=== PATIENT | male | born 1995 | race Caucasian/White ===

== ENCOUNTER 2021-04-08 00:39 | Emergency (ER) | payer MEDICAID, SELFPAY ==
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
[2021-04-08 00:54] VITALS: BP 122/75; PULSE 84; RESP 20; O2SAT 99; BMI 25.7
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
--- NOTE | 2021-04-08 01:25 | PC.NURSE ---
pt off to CT
--- NOTE | 2021-04-08 01:42 | PC.NURSE ---
pt back from CT
[2021-04-08] MEDS: ondansetron HCL 4 MG/2 ML VIAL IVPUSH (02:16)
[2021-04-08 02:18] VITALS: RESP 16
[2021-04-08] MEDS: Morphine Sulfate 4 MG/ML CARTRIDGE IVPUSH ×2 (02:18→03:39)
[2021-04-08 03:39] VITALS: RESP 16
[2021-04-08] MEDS: Lidocaine HCl 1%/Epi 1:100,000 20 ML VIAL INFILTRATI (03:43)
[2021-04-08 03:44] VITALS: RESP 16
--- NOTE | 2021-04-08 03:45 | PC.NURSE ---
at bedside for suture procedure
--- NOTE | 2021-04-08 04:15 | PC.NURSE ---
pt tolerated sutures well MD placed 14 stitches total. 4 internal stitches and 6 external stitches to puncture wound on R corner of mouth. 4 external stitches to wound on underside of chin.
[2021-04-08] MEDS: Diphth,Pertus(ACell),Tet Adult 0.5 ML SYRINGE IM (04:20)
--- NOTE | 2021-04-08 05:13 | PC.NURSE ---
Bacitractin applied to abrasions on left knee, non-adhesive dressing applied over abrasions and then wrapped with gauze wrap by this nurse.
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
[2021-04-08 05:42] VITALS: PULSE 75; RESP 16; O2SAT 97
== END 2021-04-08 05:44 | disposition home or self-care (01) ==
PROVIDERS: Emergency Provider Emergency Medicine Emergency Medical Services
DX: S01.81XA Laceration without foreign body of other part of head, initial encounter (principal); S80.812A Abrasion, left lower leg, initial encounter; G44.309 Post-traumatic headache, unspecified, not intractable; M79.605 Pain in left leg; M54.2 Cervicalgia; F12.90 Cannabis use, unspecified, uncomplicated; V27.4XXA Motorcycle driver injured in collision with fixed or stationary object in traffic accident, initial encounter; Y93.9 Activity, unspecified; Y92.410 Unspecified street and highway as the place of occurrence of the external cause; Y99.9 Unspecified external cause status
CPT/HCPCS: 12014; 70450; 70486; 72125; 90471; 90715; 96374; 96375; 96376; 99284; J2270; J2405

== ENCOUNTER 2021-04-23 11:38 | Emergency (ER) | payer MEDICAID, SELFPAY ==
[2021-04-23 11:44] VITALS: BP 127/68; PULSE 98; RESP 18; TEMP 36.3; O2SAT 96; BMI 25.7
--- NOTE | 2021-04-23 12:10 | ED.GENADULT ---
HPI - General Adult General Chief complaint: Recheck/Abnormal Lab/Rx Stated complaint: suture removal Time Seen by Provider: 04/23/21 12:08 History of Present Illness HPI narrative: Patient presents to ED for suture removal. Patient states he had sutures placed on 08 of april. Patient denies any complaint. Patient denies any fever or chills. Related Data Allergies Allergy/AdvReac Type Severity Reaction Status Date / Time No Known Allergies Allergy Verified 04/08/21 00:53 [No Known Allergies*] Review of Systems Review of Systems: Yes all other systems are reviewed and are negative Constitutional: Constitutional: Reports as per HPI and Reports no additional constitutional complaints Eyes: Eyes: Reports as per HPI and Reports no additional eye complaints ENT: Reports system reviewed and no additional complaints, except as documented and Reports as per HPI Cardiovascular: Cardiovascular: Reports as per HPI and Reports no additional cardiovascular complaints Respiratory: Respiratory: Reports as per HPI and Reports no additional respiratory complaints Gastrointestinal: Gastrointestinal: Reports as per HPI and Reports no additional gastrointestinal complaints Genitourinary: Genitourinary: Reports no additional male genitourinary complaints and Reports as per HPI Musculoskeletal: Musculoskeletal: Reports no additional musculoskeletal complaints and Reports as per HPI Neurologic: Reports system reviewed and no additional complaints, except as documented and Reports as per HPI Psychiatric: Psychiatric: Reports no additional psychiatric complaints and Reports as per HPI [facility] Past Medical History Medical History (Updated 04/23/21 @ 12:17 by RAYSHAWN Lyman) No known health problems Social History Social History Advance Directives: No Advance Directives Information Provided: No Physical Exam Vital Signs: Vital Signs: Last Vital Signs Temp 97.3 F 04/23/21 11:44 Pulse 98 04/23/21 11:44 Resp 18 04/23/21 11:44 BP 127/68 04/23/21 11:44 Pulse Ox 96 04/23/21 11:44 Body Mass Index 25.7 Const: General: cooperative, healthy appearing, comfortable, no acute distress, well developed, alert, awake and Physically active Orientation/consciousness: patient oriented x3 HENMT: Head: Yes normal to inspection, Yes No palpable skull fracture present, Yes normocephalic, Yes atraumatic and No abrasion Head images: 1. Wound with sutures. Negative for any erythema, pus discharge, foul odor, or tenderness 2. Wound with sutures. Negative for any erythema, pus discharge, foul odor, or tenderness Eyes: General: appearance normal, both eyes and all related structures Neck: Neck: Yes normal visual inspection, Yes full ROM, Yes no lymphadenopathy, Yes no meningeal signs, Yes trachea midline, Yes supple and No tender Chest: Chest palpation & inspection: normal inspection of the chest and normal palpation of entire chest wall Resp: Effort & Inspection: normal respiratory effort and able to speak in complete sentences Auscultation: clear to auscultation bilaterally, no crackles, no rales, no rhonchi and no wheezes Cardio: Jugular venous distension: no JVD Heart sounds: S1 normal heart sound present and S2 normal heart sound present GI: Inspection: Yes normal to inspection and No abdominal wall ecchymosis Palpation (GI): Soft to palpation, not firm, nontender, no guarding and not rigid : General: No CVA tenderness and Yes no CVA tenderness Back/Spine/Pelvis: Back: no CVA tenderness, No CVA tenderness and No back tenderness Skin: General skin exam: no rashes or lesions noted and elasticity normal Neuro: General: patient oriented x3, gait normal, no meningeal signs and CN's II-XI intact bilaterally Cranial nerves: Yes CN's II-XII intact bilaterally Extrem: General: Yes normal to inspection and Yes full ROM Psych: Appearance: grossly normal, well kempt and not disheveled Course Course Course Narrative: Sutures to be removed. Reevaluation(s) Reevaluation #1: Area clean with normal saline. Sutures removed from wound on right side of lower lip and chin. No signs of infection. Patient is safe for discharge Time: 12:16 Medical Decision Making [facility] Narrative Medical decision making narrative: Suture removal Discharge Plan Discharge Clinical Impression: Visit for suture removal Patient Disposition: Home, Self-Care Instructions: Stitches Removal (ED) Additional Instructions: No signs of infection. Return to the ED. post discharge, foul odor, fever, chills, erythema, or any other concerning symptoms. Please follow-up with PCP. Interventions: ED Discharge Assessment Last Done: 04/23/21 12:30 Discharge Date/Time: 04/23/21 12:36 Print Language: [place]
--- NOTE | 2021-04-23 12:29 | PC.NURSE ---
PT EVALUATED BY DR AVERY. PT AWARE AND AGREEABLE TO ED CARE PLAN. PT AWAKE, ALERT AND ORIENTED X 3. SKIN WARM AND DRY. RESP UNLABORED. DENIES N/V. NO ACUTE DISTRESS NOTED. NEUROS INTACT. SCHAFER FREELY. SPEAKING IN FULL CLEAR SENTENCES. NO ACUTE DISTRESS.
== END 2021-04-23 12:36 | disposition home or self-care (01) ==
PROVIDERS: Emergency Provider Emergency Medicine
DX: Z48.02 Encounter for removal of sutures (principal)
CPT/HCPCS: 99283

== ENCOUNTER 2021-08-31 13:01 | Emergency (ER) | payer MEDICAID, SELFPAY ==
--- NOTE | ~2021-08-31 | CT_ITS ---
EXAMINATION: CT ABDOMEN AND PELVIS WITHOUT CONTRAST CLINICAL INFORMATION: Rule out ulcer/perforation. Abdominal pain. COMPARISON: March 03, 2019 TECHNIQUE: Multidetector volumetric imaging was performed from the superior aspect of the liver through the pubic symphysis. Sagittal and coronal reformatted images were obtained on the technologist's workstation. This CT examination was performed using dose optimization techniques as appropriate, variously including the following: *Automated exposure control *Adjustment of mA and/or kV according to patient size (this includes techniques or standardized protocols for targeted exams where dose is matched to indication/reason for exam; i.e. extremities or head) *Use of iterative reconstruction technique DLP: 459 mGy-cm FINDINGS: There is motion artifact present. LUNG BASES: The visualized lung bases are unremarkable. No pleural or pericardial effusion. LIVER, GALLBLADDER, AND BILIARY TREE: The liver is normal in size, shape, and attenuation. No focal hepatic lesion or biliary ductal dilatation is present. The gallbladder is unremarkable with no evidence of radiopaque gallstones, gallbladder wall thickening, or obvious pericholecystic inflammatory changes. PANCREAS: Unremarkable. SPLEEN: Unremarkable. ADRENAL GLANDS: Unremarkable. KIDNEYS AND URETERS: The kidneys are normal in size, shape, and attenuation. No hydronephrosis, hydroureter, or calculi seen. No perinephric stranding. BLADDER: Unremarkable. GASTROINTESTINAL TRACT: No dilated loops of large or small bowel are evident. No free air or free fluid is seen. No evidence of acute diverticulitis. No pericolonic inflammatory change to suggest colitis. No evidence of acute appendicitis. ABDOMINAL WALL: No significant hernia is appreciated. LYMPH NODES: No lymphadenopathy appreciated. VASCULAR: Unremarkable. PELVIC VISCERA: Unremarkable. OSSEOUS STRUCTURES: No suspicious destructive bony lesions identified. There is partial sacralization of L5 on the left. CT/CT abdomen pelvis wo con IMPRESSION: No evidence of ileus or obstruction. No evidence of acute appendicitis. No evidence of obstructive uropathy. Fleischner guidelines were followed.
--- NOTE | ~2021-08-31 | XR_ITS ---
EXAMINATION: XR CHEST CLINICAL INFORMATION: Rule out free air under the diaphragm COMPARISON: None TECHNIQUE: AP portable view of the chest was obtained. FINDINGS: No significant abnormality is noted involving the heart, lungs, mediastinum, bony thorax or soft tissues. XR/XR chest 1V IMPRESSION: No acute disease. No free air seen under the diaphragms.
--- NOTE | 2021-08-31 13:10 | ECG_ITS ---
Test Reason : abd pain Blood Pressure : / mmHG Vent. Rate : 071 BPM Atrial Rate : 071 BPM P-R Int : 118 ms QRS Dur : 102 ms QT Int : 430 ms P-R-T Axes : 071 085 065 degrees QTc Int : 467 ms Normal sinus rhythm with sinus arrhythmia Normal ECG When compared with ECG of 26-JUN-2019 08:51, No significant change was found Referred By: Aye Coker Electronically Signed By:AMPARO OSORIO MD
[2021-08-31 13:11] VITALS: BP 129/67; BP 138/57; PULSE 80; PULSE 81; RESP 22; TEMP 36.8; O2SAT 100; O2SAT 97; BMI 23.0
--- NOTE | 2021-08-31 13:14 | ED.ABDPAIN ---
HPI - Abdominal Pain General Chief Complaint: Abdominal Pain Stated Complaint: ABD PAIN,VOMITING BLOOD Time Seen by Provider: 08/31/21 13:09 Source: patient and EMS Mode of arrival: EMS Limitations: no limitations History of Present Illness HPI narrative: Patient comes emergency room complaining of 4 days of abdominal pain. Patient states he has severe epigastric pain. Patient coming in crying, states he has history of peptic ulcers, but has not been taking any medication for several years. Related Data Previous Rx's Medication Instructions Recorded metoclopramide HCl 5 mg tablet 5 mg PO DAILY PRN #10 tab 08/31/21 omeprazole 40 mg capsule,delayed 40 mg PO DAILY #20 cap 08/31/21 release Allergies Allergy/AdvReac Type Severity Reaction Status Date / Time No Known Allergies Allergy Verified 04/08/21 00:53 [No Known Allergies*] COUNT INCLUDES [facility] Past Medical History Medical History (Updated 08/31/21 @ 16:09 by Aye Coker MD) Stomach ulcer Social History Social History Advance Directives: No Advance Directives Information Provided: Yes Physical Exam ED Vital Signs: Vital Signs - 24 hr 08/31/21 13:11 08/31/21 14:00 08/31/21 15:43 Temperature 98.2 F 98.1 F 98.5 F Pulse Rate 81 65 75 Respiratory Rate 22 H 17 16 Blood Pressure 138/57 L 101/52 L 107/58 L Pulse Oximetry 97 94 98 BMI result Body Mass Index 23.0 Course Course Course Narrative: Patient feeling better. Patient will p.o. challenge. Anticipating discharge home. Pain and vomiting likely secondary to cyclic vomiting versus peptic ulcer disease. Perforation not suspected MDM - Abdominal Pain Lab Data Result diagrams: 08/31/21 13:45 08/31/21 13:45 Labs: Lab Results 08/31/21 08/31/21 08/31/21 Range/Units 13:45 13:45 13:45 WBC 11.2 H (4.8-10.8) X10*3/uL RBC 4.74 (4.60-5.80) X10*6/uL Hgb 14.4 (14.0-18.0) g/dl Hct 40.3 L (42.0-52.0) % MCV 85.0 (80.0-98.0) fL MCH 30.4 (27.0-33.0) pg MCHC 35.7 (31.0-36.0) g/dl RDW 11.9 (11.0-16.0) % Plt Count 255 (160-400) X10*3/uL MPV 10.1 (9.4-12.4) fL Immature Gran % (Auto) 0.5 H (0.0-0.4) % Neut % (Auto) 82.6 H (45-73) % Lymph % (Auto) 10.8 L (20-40) % [place] % (Auto) 5.9 (2-11) % Eos % (Auto) 0.0 (0-4) % Baso % (Auto) 0.2 (0-2) % Lymph # (Auto) 1.2 (1.2-4.9) X10*3/uL [place] # (Auto) 0.7 (0.1-1.2) X10*3/uL Eos # (Auto) 0.0 (0.0-0.4) X10*3/uL Baso # (Auto) 0.0 (0.0-0.2) X10*3/uL Abs Immat Gran (auto) 0.06 H (0.00-0.03) X10*3/uL Absolute Neuts (auto) 9.3 H (2.0-8.3) x10*3/uL Absolute Nucleated RBC 0.000 (0.0-0.012) X10*3/uL Nucleated RBC % (auto) 0.0 (0.0-0.2) /100WBC Sodium 135 (135-145) mmol/L Potassium 3.4 (3.3-5.1) mmol/L Chloride 99 (96-108) mmol/L Carbon Dioxide 22 (22-29) mmol/L Anion Gap 17 (12-20) BUN 17 H (9-16) mg/dL Creatinine 0.92 (0.5-1.4) mg/dL Estim Creat Clear Calc 131.5 Estimated GFR > 60 Random Glucose 95 (60-115) mg/dL Lactic Acid 1.8 (0.5-2.0) mmol/L Calcium 9.7 (8.4-10.2) mg/dL Total Bilirubin 2.5 H (0.0-1.0) mg/dL Direct Bilirubin 0.9 H (0.0-0.5) mg/dL AST 29 (5-37) U/L ALT 30 (0-40) U/L Alkaline Phosphatase 58 (39-117) U/L Total Protein 7.7 (6.5-8.0) g/dL Albumin 4.8 (3.5-5.0) g/dL Lipase 10 (8-78) U/L Urine Color Urine Appearance Urine pH (5.0-8.0) Ur Specific [place] (1.005-1.025) Urine Protein (NEG-TRACE) MG/DL Urine Glucose (UA) (NEG) MG/DL Urine Ketones (NEG) MG/DL Urine Blood (NEG) Urine Nitrite (NEG) Ur Leukocyte Esterase (NEG) Urine Opiates Screen (Not Detect) Urine Fentanyl Screen (Not Detect) Ur Barbiturates Screen (Not Detect) Ur Phencyclidine Scrn (Not Detect) Ur Amphetamines Screen (Not Detect) U Benzodiazepines Scrn (Not Detect) Urine Cocaine Screen (Not Detect) U Marijuana (THC) Screen (Not Detect) COVID-19 ([facility]) (Negative) COVID-19 Clin Com 08/31/21 08/31/21 08/31/21 Range/Units 13:45 14:39 14:39 WBC (4.8-10.8) X10*3/uL RBC (4.60-5.80) X10*6/uL Hgb (14.0-18.0) g/dl Hct (42.0-52.0) % MCV (80.0-98.0) fL MCH (27.0-33.0) pg MCHC (31.0-36.0) g/dl RDW (11.0-16.0) % Plt Count (160-400) X10*3/uL MPV (9.4-12.4) fL Immature Gran % (Auto) (0.0-0.4) % Neut % (Auto) (45-73) % Lymph % (Auto) (20-40) % [place] % (Auto) (2-11) % Eos % (Auto) (0-4) % Baso % (Auto) (0-2) % Lymph # (Auto) (1.2-4.9) X10*3/uL [place] # (Auto) (0.1-1.2) X10*3/uL Eos # (Auto) (0.0-0.4) X10*3/uL Baso # (Auto) (0.0-0.2) X10*3/uL Abs Immat Gran (auto) (0.00-0.03) X10*3/uL Absolute Neuts (auto) (2.0-8.3) x10*3/uL Absolute Nucleated RBC (0.0-0.012) X10*3/uL Nucleated RBC % (auto) (0.0-0.2) /100WBC Sodium (135-145) mmol/L Potassium (3.3-5.1) mmol/L Chloride (96-108) mmol/L Carbon Dioxide (22-29) mmol/L Anion Gap (12-20) BUN (9-16) mg/dL Creatinine (0.5-1.4) mg/dL Estim Creat Clear Calc Estimated GFR Random Glucose (60-115) mg/dL Lactic Acid (0.5-2.0) mmol/L Calcium (8.4-10.2) mg/dL Total Bilirubin (0.0-1.0) mg/dL Direct Bilirubin (0.0-0.5) mg/dL AST (5-37) U/L ALT (0-40) U/L Alkaline Phosphatase (39-117) U/L Total Protein (6.5-8.0) g/dL Albumin (3.5-5.0) g/dL Lipase (8-78) U/L Urine Color YELLOW Urine Appearance CLEAR Urine pH 6.5 (5.0-8.0) Ur Specific [place] 1.010 (1.005-1.025) Urine Protein TRACE (NEG-TRACE) MG/DL Urine Glucose (UA) NEG (NEG) MG/DL Urine Ketones 40 (NEG) MG/DL Urine Blood NEG (NEG) Urine Nitrite NEG (NEG) Ur Leukocyte Esterase NEG (NEG) Urine Opiates Screen POSITIVE H (Not Detect) Urine Fentanyl Screen Not Detected (Not Detect) Ur Barbiturates Screen Not Detected (Not Detect) Ur Phencyclidine Scrn Not Detected (Not Detect) Ur Amphetamines Screen Not Detected (Not Detect) U Benzodiazepines Scrn Not Detected (Not Detect) Urine Cocaine Screen Not Detected (Not Detect) U Marijuana (THC) Screen POSITIVE H (Not Detect) COVID-19 ([facility]) Negative (Negative) COVID-19 Clin Com See Note Discharge Plan Discharge Clinical Impression: Cyclical vomiting, Peptic ulcer disease Patient Disposition: Home, Self-Care Instructions: Peptic Ulcer (ED), Diet for Stomach Ulcers and Gastritis (ED), Cyclic Vomiting Syndrome (ED) Additional Instructions: Please follow-up with your primary care physician tomorrow. If you have any worsening or new symptoms, please return to the emergency room or call 911 Prescriptions: New omeprazole 40 mg capsule,delayed release(DR/EC) 40 mg PO DAILY Qty: 20 0RF metoclopramide HCl 5 mg tablet 5 mg PO DAILY PRN (Reason: nausea and vomiting) Qty: 10 0RF
[2021-08-31] MEDS: Morphine Sulfate 4 MG/ML CARTRIDGE IVPUSH (13:27)
[2021-08-31] MEDS: Prochlorperazine Edisylate 10 MG/2 ML VIAL 5 MG IV (13:28)
[2021-08-31] MEDS: Pantoprazole Sodium 40 MG/10 ML VIAL IVPUSH (13:28)
[2021-08-31] MEDS: 0.9 % Sodium Chloride 1,000 ML 999 ML IVCONT (13:29)
[2021-08-31 13:55] LABS: MANUAL DIFF FLAG NO
[2021-08-31 14:00] VITALS: BP 101/52; PULSE 65; RESP 17; TEMP 36.7; O2SAT 94
[2021-08-31 14:01] LABS: Basophils Percent Auto 0.2 % (0-2); Hematocrit 40.3 % (42.0-52.0); Hemoglobin 14.4 g/dl (14.0-18.0); Imm Gran Abs Auto 0.06 X10*3/uL (0.00-0.03); Imm Gran Pct Auto 0.5 % (0.0-0.4); Lymphocytes Absolute Auto 1.2 X10*3/uL (1.2-4.9); Lymphocytes Percent Auto 10.8 % (20-40); Mean Corpuscular HGB Conc 35.7 g/dl (31.0-36.0); Mean Corpuscular Hemoglobin 30.4 pg (27.0-33.0); Mean Platelet Volume 10.1 fL (9.4-12.4); Monocytes Absolute Auto 0.7 X10*3/uL (0.1-1.2); Monocytes Percent Auto 5.9 % (2-11); Neutrophils Absolute Auto 9.3 x10*3/uL (2.0-8.3); Neutrophils Percent Auto 82.6 % (45-73); Platelet Count 255 X10*3/uL (160-400); Red Blood Count 4.74 X10*6/uL (4.60-5.80); Red Cell Distribution Width 11.9 % (11.0-16.0); White Blood Count 11.2 X10*3/uL (4.8-10.8)
[2021-08-31 14:13] LABS: Lactic Acid 1.8 mmol/L (0.5-2.0)
[2021-08-31 14:17] LABS: Alanine Aminotransferase 30 U/L (0-40); Albumin Level 4.8 g/dL (3.5-5.0); Alkaline Phosphatase 58 U/L (39-117); Anion Gap 17 (12-20); Aspartate Amino Transferase 29 U/L (5-37); Bilirubin Direct 0.9 mg/dL (0.0-0.5); Bilirubin Total 2.5 mg/dL (0.0-1.0); Blood Urea Nitrogen 17 mg/dL (9-16); Calcium 9.7 mg/dL (8.4-10.2); Carbon Dioxide 22 mmol/L (22-29); Chloride 99 mmol/L (96-108); Creatinine Clr Calc Pharmacy 131.5; Estimated Glomerular Filt Rate > 60; Glucose Random 95 mg/dL (60-115); Lipase 10 U/L (8-78); Potassium 3.4 mmol/L (3.3-5.1); Sodium 135 mmol/L (135-145); Total Protein 7.7 g/dL (6.5-8.0)
[2021-08-31 14:30] LABS: COVID-19 Test Negative (Negative); IDNOW Serial# 55D5AD1C
--- NOTE | 2021-08-31 14:41 | PC.NURSE ---
patient a&ox3, vss, patient states his pain reduced to 3/10, urine obtained, pt to ct scan, will continue to monitor.
[2021-08-31 14:49] LABS: Appearance Urine CLEAR; Color Urine YELLOW; Glucose Urine UA NEG (NEG); Leukocyte Esterase Urine NEG (NEG); Nitrite Urine NEG (NEG); PH 6.5 (5.0-8.0); Urine Blood NEG (NEG); Urine Ketones 40 MG/DL (NEG); Urine Protein TRACE MG/DL (NEG-TRACE)
[2021-08-31 15:43] VITALS: BP 107/58; PULSE 75; RESP 16; TEMP 36.9; O2SAT 98
[2021-08-31 16:06] LABS: Amphetamine Screen Urine Not Detected (Not Detect); Barbiturates, Urine Not Detected (Not Detect); Benzodiazepines Screen Urine Not Detected (Not Detect); Cannabinoid Screen Urine POSITIVE (Not Detect); Cocaine Screen Urine Not Detected (Not Detect); Fentanyl, urine Not Detected (Not Detect); Opiate Screen Urine POSITIVE (Not Detect); Phencyclidine Screen Urine Not Detected (Not Detect)
== END 2021-08-31 16:59 | disposition home or self-care (01) ==
PROVIDERS: Emergency Medicine; Emergency Provider Emergency Medicine
DX: K27.9 Peptic ulcer, site unspecified, unspecified as acute or chronic, without hemorrhage or perforation (principal); R11.15 Cyclical vomiting syndrome unrelated to migraine; Z20.822 Contact with and (suspected) exposure to COVID-19; F12.90 Cannabis use, unspecified, uncomplicated
CPT/HCPCS: 71045; 74176; 80048; 80076; 80307; 81003; 83605; 83690; 85025; 87040; 87635; 93005; 96361; 96374; 96375; 99284; J2270

== ENCOUNTER 2025-02-27 00:08 | Inpatient (IN) | payer OTHER, SELFPAY ==
[2025-02-27] VITALS (7 sets, daily range): BP systolic 119–147; BP diastolic 56–96; PULSE 76–124; RESP 15–18; TEMP 35.5–37.1; O2SAT 93–99; BMI 27.4
--- NOTE | 2025-02-27 | ECG_ITS ---
Test Reason : REPEAT EKG Blood Pressure : */* mmHG Vent. Rate : 65 BPM Atrial Rate : 65 BPM P-R Int : 126 ms QRS Dur : 104 ms QT Int : 514 ms P-R-T Axes : 68 83 64 degrees QTcB Int : 534 ms Normal sinus rhythm Prolonged QT Abnormal ECG When compared with ECG of 27-Feb-2025 06:25, No significant change was found Referred By: Karla Ny Electronically Signed By: Cameron Alicea
--- NOTE | ~2025-02-27 | US_ITS ---
CLINICAL HISTORY: RUQ pain, nausea, vomiting US abdomen limited Comparison: None provided Findings: The visualized pancreas is normal. The aorta and inferior vena cava are normal caliber. The appearance of the liver suggests fatty infiltration. There is no intrahepatic bile duct dilatation. The common duct is 3.0 mm in diameter. There are gallstones. The gallbladder is otherwise normal. There is no sonographic Marquez sign. The main portal vein is antegrade. The right kidney is 10.7 cm in length. No ascites. IMPRESSION: 1. Cholelithiasis. 2. Hepatic steatosis This document has been electronically signed by: Joe Haro MD on 02/27/2025 08:30:53
[2025-02-27 02:09] LABS: Alanine Aminotransferase 37 U/L (0-40); Albumin Level 5.4 g/dL (3.5-5.0); Alkaline Phosphatase 68 U/L (39-117); Anion Gap 23 (12-20); Aspartate Amino Transferase 68 U/L (5-37); Blood Urea Nitrogen 40 mg/dL (9-16); Calcium 10.0 mg/dL (8.4-10.2); Carbon Dioxide 26 mmol/L (22-29); Chloride 82 mmol/L (96-108); Creatinine Clr Calc Pharmacy 94.1; Estimated Glomerular Filt Rate > 60; Lipase 26 U/L (8-78); Potassium 2.7 mmol/L (3.3-5.1); Sodium 128 mmol/L (135-145); Total Protein 8.4 g/dL (6.5-8.0)
[2025-02-27 02:16] LABS: Hematocrit 44.5 % (42.0-52.0); Imm Gran Abs Auto 0.13 X10*3/uL (0.00-0.03); Imm Gran Pct Auto 0.9 % (0.0-0.4); Lymphocytes Absolute Auto 2.3 X10*3/uL (1.2-4.9); MANUAL DIFF FLAG SCAN; Mean Corpuscular Volume 81.2 fL (80.0-98.0); NRBC Abs Auto 0.000 X10*3/uL (0.0-0.012); NRBC Pct Auto 0.0 /100WBC (0.0-0.2); Platelet Count 267 X10*3/uL (160-400); Red Blood Count 5.48 X10*6/uL (4.60-5.80); SCAN SMEAR FLAG 1; White Blood Count 14.9 X10*3/uL (4.8-10.8)
[2025-02-27 02:35] LABS: Hemoglobin 16.5 g/dl (14.0-18.0); Mean Corpuscular HGB Conc 37.1 g/dl (31.0-36.0); Mean Corpuscular Hemoglobin 30.1 pg (27.0-33.0)
--- NOTE | 2025-02-27 02:54 | ED_ITS ---
HPI - Abdominal Pain General Chief Complaint: Abdominal Pain Stated Complaint: abd pain Time Seen by Provider: 02/27/25 02:46 Source: patient Mode of arrival: ambulatory Limitations: no limitations History of Present Illness ED Provider: Dr. Aye Coker HPI narrative: Patient comes to the emergency room complaining of nausea vomiting and abdominal pain for several days. Patient states that he has been having intermittent abdominal pains for several years. Patient admits that he smokes marijuana. Patient denies URI or UTI symptoms, denies hematuria or dysuria, denies flank pain Related Data Previous Rx's ?Medication ?Instructions ?Recorded metoclopramide HCl 5 mg tablet 5 mg PO DAILY PRN nause a and 08/31/21 vomiting #10 tabs omeprazole 40 mg capsule,delayed 40 mg PO DAILY #20 ca ps 08/31/21 release Allergies Allergy/AdvReac Type Severity Reaction Status Date / Time No Known Allergies (No Known Allergy Verified 02/27/25 00:18 Allergies*) Review of Systems Review of Systems Constitutional : No Weight loss, No Fever, No Chills, No Night Sweats, No Fatigue, No Malaise ENT/Mouth : No Hearing loss, No Ear Pain, No Nasal Congestion, No Sinus Pain, No Hoarseness, No sore throat, No Rhinorrhea, No Swallowing Difficulty Eyes: No Eye Pain, No Swelling, No Redness, No Foreign Body, No Discharge, No Vision Changes Cardiovascular : No Chest Pain, No SOB, No Dyspnea on Exertion, No Orthopnea, No Edema, No Palpitations Respiratory : No Cough, No Sputum, No Wheezing, No Smoke Exposure, No Dyspnea Gastrointestinal : Complaining of nausea and vomiting, loose stools, complaining of epigastric pain Genitourinary : no irregular bleeding, No Dysuria, No Urinary Frequency, No Hematuria, No Urinary Incontinence, No Urgency, No Flank Pain, No Urinary Flow Changes, No Hesitancy Musculoskeletal : No joint pain, No Myalgias, No Joint Swelling Skin : No Skin Lesions, No rash Neuro : No Weakness, No Numbness, No Paresthesias, No Loss of Consciousness, No Dizziness, No Headache Psych : No Anxiety/Panic, No Depression, No SI/HI/AH/VH, admits to marijuana abuse Heme/Lymph: No Bruising, No Bleeding,No Lymphadenopathy Endocrine : No Polyuria, No Polydipsia, No Temperature Intolerance PMFSH Past Medical History Medical History Stomach ulcer Social History Social History Smoked in Last 30 Days: No Use of substances other than those prescribed or required for medical reasons: No Advance Directives: No Physical Exam ED Exam Exam: Appearance: Alert. Oriented X3. Looks uncomfortable Eyes: Pupils equal, round and reactive to light. ENT: Pharynx normal. Neck: Normal inspection. Neck supple. No lymph nodes noted. No crepitus CVS: Normal heart rate and rhythm. Pulses normal. Normal S1 and S2 Respiratory: No respiratory distress. Breath sounds normal. No Wheezing. No rales Abdomen: Soft , nondistended, no significant tenderness to palpation arriving quadrants or epigastric area Skin: Skin warm and dry. Normal skin color. Normal skin turgor. Extremities: No lower extremity edema. No Lacerations. No Rash Neuro: Oriented X 3. No motor deficit. No sensory deficit. Moving all extremities. No slurred speech. 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 When patient can tolerate p.o. he will be getting p.o. potassium. And we will also be getting IM Haldol small dose to help with the symptoms Medical Decision Making Medical Decision Making MDM Narrative: My interpretation of labs: Patient's hematology shows a white blood cell count of 14.9, likely secondary to cyclical vomiting. Patient's chemistry shows a sodium of 128, potassium 2.7, patient receiving IV fluids and potassium p.o.. LFTs within normal limits Patient's magnesium is Low too. We attempted to give patient p.o. medications, patient is not tolerating p.o. despite multiple doses of medications. Patient is still very nauseous, looks uncomfortable I discussed the patient with the Medicine team, patient being admitted Differential Diagnosis Differential Diagnoses: The differential diagnosis associated with the presentation includes (Peptic ulcer disease, alcoholic gastritis, gastritis, cyclical vomiting) Admission/Observation Consideration of admission/observation: Escalation of care including admission/observation considered (Given patient's initial presentation symptoms, observation has been considered) Lab Data MDM Lab Attestation statement: I reviewed the patient's lab results. 02/27/25 01:42 02/27/25 01:42 Labs: Lab Results 02/27/25 02/27/25 Range/Units 01:42 04:39 WBC 14.9 H (4.8-10.8) X10*3/uL RBC 5.48 (4.60-5.80) X10*6/uL Hgb 16.5 (14.0-18.0) g/dl Hct 44.5 (42.0-52.0) % MCV 81.2 (80.0-98.0) fL MCH 30.1 (27.0-33.0) pg MCHC 37.1 H (31.0-36.0) g/dl RDW 12.1 (11.0-16.0) % Plt Count 267 (160-400) X10*3/uL MPV 9.9 (9.4-12.4) fL Immature Gran % (Auto) 0.9 H (0.0-0.4) % Neut % (Auto) 70.9 (45-73) % Lymph % (Auto) 15.7 L (20-40) % [place] % (Auto) 12.3 H (2-11) % Eos % (Auto) 0.1 (0-4) % Baso % (Auto) 0.1 (0-2) % Lymph # (Auto) 2.3 (1.2-4.9) X10*3/uL [place] # (Auto) 1.8 H (0.1-1.2) X10*3/uL Eos # (Auto) 0.0 (0.0-0.4) X10*3/uL Baso # (Auto) 0.0 (0.0-0.2) X10*3/uL Abs Immat Gran (auto) 0.13 H (0.00-0.03) X10*3/uL Absolute Neuts (auto) 10.6 H (2.0-8.3) x10*3/uL Absolute Nucleated RBC 0.000 (0.0-0.012) X10*3/uL Nucleated RBC % (auto) 0.0 (0.0-0.2) /100WBC Smear Tech's Comments VERIFIED Sodium 128 L (135-145) mmol/L Potassium 2.7 L* (3.3-5.1) mmol/L Chloride 82 L (96-108) mmol/L Carbon Dioxide 26 (22-29) mmol/L Anion Gap 23 H (12-20) BUN 40 H (9-16) mg/dL Creatinine 1.11 (0.5-1.4) mg/dL Estim Creat Clear Calc 94.1 Estimated GFR > 60 Random Glucose 103 (60-115) mg/dL Calcium 10.0 (8.4-10.2) mg/dL Total Bilirubin 2.6 H (0.0-1.0) mg/dL AST 68 H (5-37) U/L ALT 37 (0-40) U/L Alkaline Phosphatase 68 (39-117) U/L Total Protein 8.4 H (6.5-8.0) g/dL Albumin 5.4 H (3.5-5.0) g/dL Lipase 26 (8-78) U/L Urine Opiates Screen Not Detected (Not Detect) Ur Buprenorphine Scrn Not Detected (Not Detect) ng/mL Ur Oxycodone Screen Not Detected (Not Detect) ng/mL Urine Methadone Screen Not Detected (Not Detect) ng/mL Urine Fentanyl Screen Not Detected (Not Detect) Ur Barbiturates Screen Not Detected (Not Detect) Ur Phencyclidine Scrn Not Detected (Not Detect) Ur Amphetamines Screen Not Detected (Not Detect) U Benzodiazepines Scrn Not Detected (Not Detect) Urine Cocaine Screen Not Detected (Not Detect) U Marijuana (THC) Screen POSITIVE H (Not Detect) Medications Administered Discontinued Medications Generic Name Dose Route Start Last Admin Trade Name Freq PRN Reason Stop Dose Admin Diphenhydramine HCl 25 mg 02/27/25 02:54 02/27/25 03:03 Diphenhydramine Hcl 50 Mg/Ml Vial IVPUSH 02/27/25 02:55 25 mg ONCE ONE Administration Famotidine 20 mg 02/27/25 02:53 02/27/25 03:03 Famotidine/Pf 20 Mg/2 Ml Vial IVPUSH 02/27/25 02:54 20 mg ONCE ONE Administration Haloperidol Lactate 2.5 mg 02/27/25 02:53 02/27/25 03:03 Haloperidol Lactate 5 Mg/Ml Vial IM 02/27/25 02:54 2.5 mg ONCE ONE Administration Sodium Chloride 1,000 mls @ 999 mls/hr 02/27/25 02:53 02/27/25 04:11 Ns IVCONT 02/27/25 03:53 Infused .Q1H1M ONE Infusion Ondansetron HCl 4 mg 02/27/25 02:53 02/27/25 03:03 Ondansetron Hcl 4 Mg/2 Ml Vial IVPUSH 02/27/25 02:54 4 mg ONCE ONE Administration Potassium Chloride 80 meq 02/27/25 02:54 02/27/25 03:02 Potassium Chloride Packet 20 Meq Packet PO 02/27/25 02:55 80 meq ONCE ONE Administration Critical Care Time Critical Care Time Critical Care Time: Yes Total Critical Care Time: 60 Attestation: I have personally provided critical care time. Time includes review of lab data, radiology results, discussion with consultants, and monitoring for potential decompensation. Intervention performed as documented. Discharge Plan Discharge Clinical Impression: Cyclical vomiting, Abdominal pain, Acute hypokalemia, Hypomagnesemia Patient Disposition: Admitted As Inpatient Print Language: Lithuanian
[2025-02-27] MEDS: Potassium Chloride Packet 20 MEQ PACKET 80 MEQ PO (03:02)
[2025-02-27 04:58] LABS: Cannabinoid Screen Urine POSITIVE (Not Detect)
--- NOTE | 2025-02-27 05:41 | PC.NURSE ---
Per PO challenge, pt drank water. states he is getting pain and feeling nauseous. Refusing to eat crackers. RN to make MD aware.
--- NOTE | 2025-02-27 06:10 | ECG_ITS ---
Test Reason : ELECTROLYE ABNORMALITY Blood Pressure : */* mmHG Vent. Rate : 70 BPM Atrial Rate : 70 BPM P-R Int : 124 ms QRS Dur : 104 ms QT Int : 500 ms P-R-T Axes : 69 87 65 degrees QTcB Int : 540 ms Normal sinus rhythm Prolonged QT Abnormal ECG When compared with ECG of 31-Aug-2021 13:17, QT has lengthened Referred By: Karla Ny Electronically Signed By: Cameron Alicea
--- NOTE | 2025-02-27 06:25 | PM.IMHP ---
History of Present Illness Date of Service: 02/27/25 Attending physician on admission: Woody Ramirez Chief Complaint: vomiting Patient is a 29-year-old male with a past medical history significant for cannabinoid induced hyperemesis syndrome, who presented to the ED again due to cyclical vomiting. He reports he has been smoking 3 g of marijuana daily, no cigarettes or alcohol or illicit drug use. He has significant abdominal pain mostly in the right upper quadrant but also in the left side and periumbilical region. He reports that his pain feels similar to previous cyclical vomiting episodes. He denies any hematemesis or bloody stools. No fever or chills. No chest pain or shortness of breath. Review of Systems Constitutional: Constitutional: Denies body ache(s), Denies chills, Denies fatigue and Denies fever(s) Eyes: Eyes: Denies change in vision ENT: Denies nasal discharge, Denies nasal obstruction and Denies sore throat Cardiovascular: Cardiovascular: Denies chest pain, Denies rapid heart rate, Denies leg edema, Denies lightheadedness and Denies dyspnea Respiratory: Respiratory: Denies chest congestion, Denies cough, Denies dyspnea and Denies wheezing Gastrointestinal: Gastrointestinal: Reports as per HPI Genitourinary: Genitourinary: Denies dysuria, Denies urinary frequency and Denies urinary urgency Musculoskeletal: Musculoskeletal: Denies myalgias Integumentary/Breasts: Skin/Breast: Denies rash Neurologic: Denies confusion Psychiatric: Psychiatric: Denies confusion Endocrine: Endocrine: Denies fatigue Hematologic/Lymphatic: Hematologic/Lymphatic: Denies easy bleeding and Denies easy bruising Allergic/Immunologic: Allergic/Immunologic: Denies wheezing [facility] Medical History (Updated 02/27/25 @ 06:28 by Karla Ny PA-C) Cyclical vomiting Stomach ulcer Functional capacity: independent ambulation Social History Smoked in Last 30 Days: No Use of substances other than those prescribed or required for medical reasons: No Advance Directives: No Narrative: smokes 3g marijuana daily, no etoh or cigarettes Meds Allergies Allergy/AdvReac Type Severity Reaction Status Date / Time No Known Allergies (No Known Allergy Verified 02/27/25 00:18 Allergies*) Active Medications: Current Medications Acetaminophen (Acetaminophen 325 Mg Tablet) 650 mg PO Q6H PRN PRN Reason: Pain, Mild 1-3,fever,headache Calcium Carbonate (Calcium Carbonate 750 Mg Tab.Chew) 750 mg PO Q4H PRN PRN Reason: Heartburn Potassium Chloride (Potassium Chloride/H20) 10 meq in 100 mls @ 100 mls/hr IV Q1H [facility] Stop: 02/27/25 10:14 Lactated Ringer's (Lr) 1,000 mls @ 100 mls/hr IVCONT .Q10H [facility] Stop: 02/27/25 16:14 Magnesium Hydroxide (Milk Of Magnesia 30 Ml Oral.Susp) 30 ml PO DAILY PRN PRN Reason: Constipation Melatonin (Melatonin 3 Mg Tablet) 6 mg PO BEDTIME PRN PRN Reason: Insomnia Oxycodone HCl (Oxycodone Hcl Immed Release 5 Mg Tablet) 5 mg PO Q6H PRN PRN Reason: Pain, Severe (Pain Scale 7-10) Prochlorperazine Edisylate (Prochlorperazine Edisylate 10 Mg/2 Ml Vial) 10 mg IVPUSH Q6H PRN PRN Reason: Nausea and Vomiting Sodium Chloride (0.9 % Sodium Chloride Flush 3 Ml Syringe) 3 ml IVFLUSH QSHIFT [facility] Tramadol HCl (Tramadol Hcl 50 Mg Tablet) 50 mg PO Q6H PRN PRN Reason: Pain, Moderate(Pain Scale 4-6) Physical Exam Vital Signs and Narrative: Vital Signs: Last Vital Signs Temp 98.1 F 02/27/25 05:55 Pulse 78 02/27/25 05:55 Resp 15 02/27/25 05:55 BP 133/83 02/27/25 05:55 Pulse Ox 96 02/27/25 05:55 O2 Del Method Room Air 02/27/25 05:55 BMI result Body Mass Index 27.4 General: AOx3, appears uncomfortable, rocking on stretcher, groaning Resp: CTA bilaterally CVS: S1, S2, RRR GI: +BS, generalized abd tenderness, no distention Skin: Warm, dry Neuro: Cranial nerves II-XII grossly intact bilaterally. Motor grossly intact bilaterally Extremities: No LE edema Psych: Appropriate affect Const: General: No confusion Orientation/consciousness: No confusion Neuro: General: No confusion Results Labs 02/27/25 01:42 02/27/25 01:42 Labs: Laboratory Results - last 24 hr 02/27/25 02/27/25 01:42 04:39 MCV 81.2 MCH 30.1 MCHC 37.1 H RDW 12.1 Plt Count 267 MPV 9.9 Immature Gran % (Auto) 0.9 H Neut % (Auto) 70.9 Lymph % (Auto) 15.7 L [place] % (Auto) 12.3 H Eos % (Auto) 0.1 Baso % (Auto) 0.1 Lymph # (Auto) 2.3 [place] # (Auto) 1.8 H Eos # (Auto) 0.0 Baso # (Auto) 0.0 Abs Immat Gran (auto) 0.13 H Absolute Neuts (auto) 10.6 H Absolute Nucleated RBC 0.000 Nucleated RBC % (auto) 0.0 Smear Tech's Comments VERIFIED Anion Gap 23 H Estim Creat Clear Calc 94.1 Estimated GFR > 60 Random Glucose 103 Calcium 10.0 Total Bilirubin 2.6 H AST 68 H ALT 37 Alkaline Phosphatase 68 Total Protein 8.4 H Albumin 5.4 H Lipase 26 Urine Opiates Screen Not Detected Ur Buprenorphine Scrn Not Detected Ur Oxycodone Screen Not Detected Urine Methadone Screen Not Detected Urine Fentanyl Screen Not Detected Ur Barbiturates Screen Not Detected Ur Phencyclidine Scrn Not Detected Ur Amphetamines Screen Not Detected U Benzodiazepines Scrn Not Detected Urine Cocaine Screen Not Detected U Marijuana (THC) Screen POSITIVE H Assessment and Plan (1) Cyclical vomiting: Status: Acute (2) Abdominal pain: Status: Acute (3) Acute hypokalemia: Status: Acute (4) Acute hyponatremia: Status: Acute Plan Patient is a 29-year-old male with a past medical history significant for cannabinoid induced hyperemesis syndrome, who presented to the ED again due to cyclical vomiting. cyclical vomiting/abd pain due to cannabinoid hyperemesis syndrome - WBC elevated, reactive. no fever, no infection identified - LFTs mildly elevated. AST 68, t bili 2.6, ALT normal, alk phos normal - abd US ordered - utox +marijuana - failed PO challenge in ED - continue compazine Q6H PRN, pain management - given 1L IVF in ED, LR 100ml/hr - full liquid diet, advance as tolerated - EKG with NSR, prolonged QTC acute hypokalemia/acute hyponatremia - K2.7, Na 128, chloride 82, anion gap 23,bicarb normal - given 1L NS, LR 100ml/hr - 80meq PO K and 40 meq IV - check mag level, given 2g in ED - QTC prolonged on EKG full code VTE prophy: pneumoboots Pt with cyclical vomiting secondary to cannabinoid hyperemesis syndrome complicated by electrolyte abnormalities, requiring admission for at least 2 midnights stay for IVF and monitoring. Quality Stroke Does the patient have a stroke diagnosis?: No VTE Prior VTE?: No VTE Risk Level:: Medical - low VTE Device Contraindication: N/A - Device Ordered VTE Drug Contraindication: Treatment Not Indicated
[2025-02-27 06:42] LABS: Magnesium 2.8 mg/dL (1.6-2.6)
[2025-02-27] MEDS: Lactated Ringers 1,000 ML 100 ML IVCONT (07:04)
[2025-02-27] MEDS: Magnesium Sulfate/H2O 2 GM/50 ML PIGGYBACK IV (07:04)
[2025-02-27] MEDS: Potassium Chloride/H20 10 MEQ/100 ML PIGGYBACK 100 MEQ IV ×4 (07:16→11:39)
--- NOTE | 2025-02-27 08:23 | PHA.MEDREC ---
Pharmacy Consult ? Medication Reconciliation Pharmacy has completed the medication reconciliation.Patient states he is not currently taking any medications
[2025-02-27] MEDS: 0.9 % Sodium Chloride Flush 3 ML SYRINGE IVFLUSH ×2 (08:44→19:48)
[2025-02-27 10:32] LABS: Potassium 3.0 mmol/L (3.3-5.1)
--- NOTE | 2025-02-27 11:10 | PM.EVENT ---
Event Note Date of Service: 02/27/25 Event Note: 29-year-old male with a past medical history significant for cannabinoid induced hyperemesis syndrome, who presented to the ED again due to cyclical vomiting. Cyclical vomiting/abd pain due to cannabinoid hyperemesis syndrome WBC elevated, reactive. no fever, no infection identified LFTs mildly elevated. AST 68, t bili 2.6, ALT normal, alk phos normal abd US showing cholelithiasis and hepatic steatosis utox +marijuana failed PO challenge in ED continue compazine Q6H PRN, pain management given 1L IVF in ED, LR 100ml/hr full liquid diet, advance as tolerated EKG with NSR, prolonged QTC Acute hypokalemia/acute hyponatremia K 2.7, Na 128, chloride 82, anion gap 23,bicarb normal given 1L NS, LR 100ml/hr 80meq PO K and 40 meq IV check mag level, given 2g in ED QTC prolonged on EKG full code VTE prophy: pneumoboots Time Spent With Patient Time: Total time managing care of this patient today ____ minutes.
--- NOTE | 2025-02-27 22:16 | PC.NURSE ---
At around 20:00 strong marijuana smell was present in hallway and in room of patient. Asked if there had been smoking in the room, pt denied and stated my mom went outside and just smoked . Called security to come check and they found nothing, but discussed no smoking policy.
[2025-02-28 03:22] VITALS: BP 138/86; PULSE 81; RESP 18; TEMP 36.8; O2SAT 95
--- NOTE | 2025-02-28 03:36 | PM.EVENT ---
Event Note Date of Service: 02/28/25 Event Note: 3:28 am - patient wishes to leave AMA. Informed about the consequences of abandoning the hospital prematurely. He is aware that he has electrolytes imbalances that could case a lethal arrhythmia and sudden . Time Spent With Patient Time: Total time managing care of this patient today ____ minutes.
--- NOTE | 2025-02-28 04:01 | PC.NURSE ---
patient left AMA, incident report filed. cutting and splicing supervisor Zahra aware of situation. Dr. Sheikh was notified and came to bedside to explain risks of leaving. Patient understand & signed AMA form and left.
== END 2025-02-28 03:40 | disposition left against medical advice (07) | DRG 392 ==
LOC: HO.ED 06:10 → HO.EDOVER 06:18 → HO.S3 09:39
PROVIDERS: Physician Assistant; Admitting Provider Internal Medicine; Emergency Provider Emergency Medicine; Visit Provider Nurse Practitioner Acute Care
DX: R11.2 Nausea with vomiting, unspecified (principal); E87.1 Hypo-osmolality and hyponatremia; E87.6 Hypokalemia; E83.42 Hypomagnesemia; F12.90 Cannabis use, unspecified, uncomplicated; F17.210 Nicotine dependence, cigarettes, uncomplicated; Z71.6 Tobacco abuse counseling
CPT/HCPCS: 36415; 76705; 80053; 80307; 83690; 83735; 84132; 85025; 93005; 99285; J0737; J1200; J1308; J1630; J1885; J2405; J3475; J3480; J7120

== ENCOUNTER → 2025-02-27 06:10 | Outpatient (BNV) | payer SELFPAY | PROVIDERS: Admitting Provider Internal Medicine; Emergency Provider Emergency Medicine; Visit Provider Internal Medicine Cardiovascular Disease | DX: R94.31 Abnormal electrocardiogram [ECG] [EKG] (principal); E87.8 Other disorders of electrolyte and fluid balance, not elsewhere classified | CPT/HCPCS: 93010 ==

== ENCOUNTER 2025-02-27 06:12 | Outpatient (BNV) | payer SELFPAY | END 2025-02-27 07:35 | PROVIDERS: Admitting Provider Internal Medicine; Emergency Provider Emergency Medicine; Visit Provider Specialist | DX: K80.80 Other cholelithiasis without obstruction (principal) | CPT/HCPCS: 76705 ==

== ENCOUNTER → 2025-02-27 06:12 | Outpatient (BNV) | payer SELFPAY | PROVIDERS: Admitting Provider Internal Medicine; Emergency Provider Emergency Medicine; Visit Provider Nurse Practitioner Acute Care | DX: R11.15 Cyclical vomiting syndrome unrelated to migraine (principal); R10.9 Unspecified abdominal pain; E87.6 Hypokalemia; E87.1 Hypo-osmolality and hyponatremia | CPT/HCPCS: 99222; 99499 ==